=== PATIENT | male | born 1965 | race Caucasian/White ===

== ENCOUNTER 2022-06-05 09:06 | Emergency (ER) | payer BC, OTHER | END 2022-06-05 10:55 | disposition home or self-care (01) | LOC: JD.ED 09:06 | DX: G54.6 Phantom limb syndrome with pain (principal); E11.9 Type 2 diabetes mellitus without complications | CPT/HCPCS: 99283 ==

== ENCOUNTER 2024-07-07 01:27 | Emergency (ER) | payer MEDICARE, OTHER ==
[2024-07-07] MEDS: Dexamethasone 4 MG/ML 5 ML MDV PO ONE (02:52)
== END 2024-07-07 02:53 | disposition home or self-care (01) ==
LOC: JD.ED 01:27
DX: J02.9 Acute pharyngitis, unspecified (principal); E11.9 Type 2 diabetes mellitus without complications; Z88.8 Allergy status to other drugs, medicaments and biological substances
CPT/HCPCS: 87651; 99283; J1100